=== PATIENT | female | born 1975 | race Caucasian/White ===

== ENCOUNTER 2017-06-24 10:39 | Observation (INO) | payer BC ==
[~2017-06-24 10:39] MED LIST: SUCCINYLCHOLINE CHLORIDE INJ 200 MG/10 ML VIAL ONE
[2017-06-24] MEDS ORDERED: MORPHINE SULFATE 10 MG/ML INJ IV ONE ×2 (10:55→13:08)
[2017-06-24] MEDS ORDERED: NORMAL SALINE 1000 ML 1,000 ML IV ONE (10:55)
[2017-06-24] MEDS ORDERED: ONDANSETRON HCL INJ/PF 4 MG/2 ML SDV IV ONE (10:55)
--- NOTE | 2017-06-24 10:57 | ER Document Report ---
ED Medical Screen (RME) - General Chief Complaint: Abdominal Pain Stated Complaint: ABDOMINAL PAIN Time Seen by Provider: 06/24/17 10:53 Notes: 42-year-old female patient with long history of umbilical hernia. Is scheduled for surgery in 2 weeks. Has been having severe pain for the past 2 days and is unable to reduce the hernia. She can normally reduce it. I have greeted and performed a rapid initial assessment of this patient. A comprehensive ED assessment and evaluation of the patient, analysis of test results and completion of the medical decision making process will be conducted by additional ED providers. TRAVEL OUTSIDE OF THE [place] IN LAST 30 DAYS: No - Related Data Allergies/Adverse Reactions: No Known Allergies Allergy (Verified 06/24/17 10:43) Past Medical History - Past Medical History Cardiac Medical History: Reports: Hx Hypertension Denies: Hx Coronary Artery Disease, Hx Heart Attack Pulmonary Medical History: Denies: Hx Asthma, Hx Bronchitis, Hx COPD, Hx Pneumonia Neurological Medical History: Denies: Hx Cerebrovascular Accident, Hx Seizures Renal/ Medical History: Denies: Hx Peritoneal Dialysis Musculoskeltal Medical History: Denies Hx Arthritis - Immunizations History of Influenza Vaccine for 06/2017 - 11/2017 Season: Yes Influenza Administration Date for 06/2017 - 11/2017 Season: 06/03/16 Physical Exam - Vital signs Vitals: Temp Pulse Resp BP Pulse Ox 98.5 F 104 H 18 147/92 H 95 06/24/17 10:45 06/24/17 10:45 06/24/17 10:45 06/24/17 10:45 06/24/17 10:45 Course - Vital Signs Vital signs: Temp Pulse Resp BP Pulse Ox 98.5 F 104 H 18 147/92 H 95 06/24/17 10:45 06/24/17 10:45 06/24/17 10:45 06/24/17 10:45 06/24/17 10:45
[2017-06-24 11:20] LABS: ABSOLUTE EOSINOPHILS # (AUTO) 0.1 10^3/uL (0.0-0.6); ABSOLUTE LYMPHOCYTES (AUTO) 2.2 10^3/uL (0.5-4.7); ABSOLUTE MONOCYTES (AUTO) 0.3 10^3/uL (0.1-1.4); ABSOLUTE NEUT (AUTO) 3.7 10^3/uL (1.7-8.2); BASOPHILS % (AUTO) 0.5 % (0-2); EOSINOPHILS % (AUTO) 1.5 % (0-6); LYMPHOCYTES % (AUTO) 35.1 % (13-45); MEAN CORPUSCULAR HGB CONC 35.1 g/dL (32.0-36.0); MEAN CORPUSCULAR VOLUME 88 fl (80-97); MONOCYTES % (AUTO) 4.9 % (3-13); RED CELL DISTRIBUTION WIDTH 12.6 % (11.5-14.0); WHITE BLOOD COUNT 6.4 10^3/uL (4.0-10.5)
[2017-06-24 11:35] LABS: ALANINE AMINOTRANSFERASE 28 U/L (9-52); ALBUMIN 4.3 g/dL (3.5-5.0); ALKALINE PHOSPHATASE 50 U/L (38-126); ANION GAP 13 (5-19); ASPARTATE AMINO TRANSFERASE 16 U/L (14-36); BILIRUBIN,DIRECT 0.3 mg/dL (0.0-0.4); BILIRUBIN,TOTAL 0.6 mg/dL (0.2-1.3); BLOOD UREA NITROGEN 10 mg/dL (7-20); CALCIUM 9.2 mg/dL (8.4-10.2); CARBON DIOXIDE 25 mmol/L (22-30); CHLORIDE 102 mmol/L (98-107); CREATININE RESULT 0.68 mg/dL (0.52-1.25); GLUCOSE 114 mg/dL (75-110); POTASSIUM 3.8 mmol/L (3.6-5.0); SODIUM 139.6 mmol/L (137-145); TOTAL PROTEIN 6.8 g/dL (6.3-8.2)
--- NOTE | 2017-06-24 12:25 | ER Document Report ---
ED GI/ - General Chief Complaint: Abdominal Pain Stated Complaint: ABDOMINAL PAIN Time Seen by Provider: 06/24/17 10:53 Mode of Arrival: Ambulatory Information source: Patient Notes: 42-year-old female who presents today with some intermittent periumbilical abdominal pain and "hernia" for the last 2-3 months. She had an outpatient ultrasound showing a hernia and is scheduled operative appointment on July 06 with the general surgeon here name Dr. Hare. She states starting 2 days ago she has had some increased pain and states she is no longer able to "push it back in". She states nausea without vomiting. She denies any fevers. She denies any other reviews of systems such as dysuria, flank pain, diarrhea, chest pain, or shortness of breath. TRAVEL OUTSIDE OF THE [place] IN LAST 30 DAYS: No - HPI Patient complains to provider of: Abdominal pain Onset: Other - See above Timing/Duration: Gradual Quality of pain: Achy Severity at maximum: Moderate Severity in ED: Moderate Pain Level: 1 Location: Other - See above Vaginal bleeding (Compared to normal period): None Sexual history: Active Associated symptoms: Other - See above Exacerbated by: Denies Relieved by: Denies Similar symptoms previously: Yes Recently seen / treated by doctor: Yes - Related Data Allergies/Adverse Reactions: No Known Allergies Allergy (Verified 06/24/17 10:43) Past Medical History - General Information source: Patient - Social History Smoking Status: Never Smoker Cigarette use (# per day): No Chew tobacco use (# tins/day): No Smoking Education Provided: No Frequency of alcohol use: Occasional Drug Abuse: None Family History: Reviewed & Not Pertinent - Past Medical History Cardiac Medical History: Reports: Hx Hypercholesterolemia, Hx Hypertension Denies: Hx Coronary Artery Disease, Hx Heart Attack Pulmonary Medical History: Denies: Hx Asthma, Hx Bronchitis, Hx COPD, Hx Pneumonia Neurological Medical History: Denies: Hx Cerebrovascular Accident, Hx Seizures Renal/ Medical History: Denies: Hx Peritoneal Dialysis Musculoskeltal Medical History: Denies Hx Arthritis Review of Systems - Review of Systems Constitutional: denies: Fever Cardiovascular: denies: Chest pain Respiratory: denies: Short of breath Gastrointestinal: Nausea. denies: Abdomen distended, Diarrhea, Vomiting Genitourinary: denies: Dysuria Skin: Other - no hives. denies: Rash Neurological/Psychological: Other - no slurred speech -: Yes All other systems reviewed and negative Physical Exam - Vital signs Vitals: Temp Pulse Resp BP Pulse Ox 98.5 F 104 H 18 147/92 H 95 06/24/17 10:45 06/24/17 10:45 06/24/17 10:45 06/24/17 10:45 06/24/17 10:45 Notes: Reviewed vital signs and nursing note as charted by RN. CONSTITUTIONAL: Alert and oriented and responds appropriately to questions. Well -appearing; well-nourished HEAD: Normocephalic; atraumatic EYES: SPERRL; Conjunctivae clear, sclerae non-icteric CARD: Regular rate and rhythm; no murmurs RESP: Normal chest excursion without splinting or tachypnea; breath sounds clear and equal bilaterally ABD/GI: Normal bowel sounds; non-distended; soft, patient has a small supraumbilical palpable hernia that is tender to palpation. I am not easily able to reduce this hernia with constant pressure. There is no surrounding erythema or induration noticed BACK: The back appears normal and is non-tender to palpation, there is no CVA tenderness EXT: Normal ROM in all joints; non-tender to palpation; no cyanosis, no effusions, no edema SKIN: No acute lesions noted NEURO: Moves all extremities equally; Motor and sensory function intact PSYCH: The patient's mood and manner are appropriate. Grooming and personal hygiene are appropriate. Course - Re-evaluation Re-evalutation: 06/24/17 12:16 Given the history and physical examination I will obtain a consultation with the general surgeon here at this facility. Basic laboratory values have been ordered in triage. 06/24/17 13:41 Surgery unable to manually reduce. He will admit for further surgical evalation. Labs as recorded. - Vital Signs Vital signs: Temp Pulse Resp BP Pulse Ox 98.5 F 104 H 18 147/92 H 95 06/24/17 10:45 06/24/17 10:45 06/24/17 10:45 06/24/17 10:45 06/24/17 10:45 - Laboratory Result Diagrams: 06/24/17 11:02 06/24/17 11:02 Laboratory results interpreted by me: 06/24/17 11:02 Glucose 114 H Discharge - Discharge Clinical Impression: Incarcerated hernia of abdominal cavity Condition: Fair Disposition: ADMITTED OBSERVATION Admitting Provider: Surgicalist Unit Admitted: Surgical Floor
[2017-06-24] MEDS ORDERED: MIDAZOLAM 2 MG/2 ML INJ IV ONE ×2 (12:43→13:09)
--- NOTE | 2017-06-24 13:38 | RADIOLOGY REPORT (SQ) ---
EXAM DESCRIPTION: KUB/ABDOMEN (SINGLE VIEW) COMPLETED DATE/TIME: 06/24/2017 1:04 pm REASON FOR STUDY: 15, periumbilical hernia COMPARISON: None. NUMBER OF VIEWS: One view. TECHNIQUE: Supine radiographic image of the abdomen acquired. LIMITATIONS: Upper abdomen partly cropped from the field of view FINDINGS: BOWEL GAS PATTERN: Normal bowel gas pattern. No dilated loops. Moderate stool throughout the colon. CALCIFICATIONS: No suspicious calcifications. SOFT TISSUES: No gross mass or suggestion of organomegaly. HARDWARE: IUD in the uterus. Artifact from a zipper on the patient's clothing. BONES: Degenerative changes at L4-5 and L5-S1. OTHER: No other significant finding. IMPRESSION: Nonobstructive bowel gas pattern with moderate amount of stool in the colon TECHNICAL DOCUMENTATION: JOB ID: [id number] [employer]- All Rights Reserved
--- NOTE | 2017-06-24 13:52 | PDOC H&P ---
History of Present Illness Admission Date/PCP: a 42-year-old female with a 3 day history of abdominal pain at the umbilicus. She has a history of umbilical hernia which has in the past been easily reducible. She was recently seen here for evaluation of hernia and scheduled in early July for umbilical hernia repair. On Sunday the hernia bulge became tender and painful. She could not reduce it. It has not been reducible since Sunday. Pain today became unbearable therefore she sought here in the emergency department. History of Present Illness: HARRISON KHAN is a 42 year old female Past Medical History Cardiac Medical History: Reports: Hyperlipidema, Hypertension Denies: Coronary Artery Disease, Myocardial Infarction Pulmonary Medical History: Denies: Asthma, Bronchitis, Chronic Obstructive Pulmonary Disease (COPD), Pneumonia Neurological Medical History: Denies: Seizures Musculoskeltal Medical History: Denies: Arthritis Hematology: Denies: Anemia Past Surgical History Past Surgical History: Reports: Other - Augmentation mammoplasty and foot surgery Social History Smoking Status: Never Smoker Family History Family History: Reviewed & Not Pertinent Parental Family History Reviewed: No Children Family History Reviewed: No Sibling(s) Family History Reviewed.: No Medication/Allergy Home Medications: Esomeprazole Mag Trihydrate [Nexium] 40 mg PO BID 06/21/17 Losartan/Hydrochlorothiazide [Hyzaar 100-25 Tablet] 1 each PO DAILY 06/21/17 Allergies/Adverse Reactions: No Known Allergies Allergy (Verified 06/24/17 10:43) Physical Exam Vital Signs: Temp Pulse Resp BP Pulse Ox 98.5 F 104 H 15 115/84 98 06/24/17 10:45 06/24/17 10:45 06/24/17 13:38 06/24/17 13:38 06/24/17 13:38 Intake & Output 06/23/17 06/24/17 06/25/17 06:59 06:59 06:59 Weight 90.4 kg Results Laboratory Results: 06/24/17 11:02 06/24/17 11:02 06/24/17 06/24/17 11:02 11:02 WBC 6.4 RBC 4.20 Hgb 13.0 Hct 37.0 MCV 88 MCH 31.0 MCHC 35.1 RDW 12.6 Plt Count 248 Seg Neutrophils % 58.0 Lymphocytes % 35.1 Monocytes % 4.9 Eosinophils % 1.5 Basophils % 0.5 Absolute Neutrophils 3.7 Absolute Lymphocytes 2.2 Absolute Monocytes 0.3 Absolute Eosinophils 0.1 Absolute Basophils 0.0 Sodium 139.6 Potassium 3.8 Chloride 102 Carbon Dioxide 25 Anion Gap 13 BUN 10 Creatinine 0.68 Est GFR ( Amer) > 60 Est GFR (Non-Af Amer) > 60 Glucose 114 H Calcium 9.2 Total Bilirubin 0.6 AST 16 ALT 28 Alkaline Phosphatase 50 Total Protein 6.8 Albumin 4.3 Impressions: KUB X-Ray 06/24/17 12:25 IMPRESSION: Nonobstructive bowel gas pattern with moderate amount of stool in the colon Status: Image reviewed by me Assessment & Plan - Diagnosis (1) Incarcerated hernia of abdominal cavity Is this a current diagnosis for this admission?: Yes Plan: A long discussion with the patient and her boyfriend. Gave her the option of going home with pain medication and having her hernia repair done in early July. She states that she has been into much pain and wishes to proceed now with hernia repair. Formal consent for open umbilical hernia repair was obtained. Understands this will not be laparoscopic as the procedure in July would have been. She also understands as she ate about 12-1230 today there will be a 68 hour period for general anesthesia can be given safely. I emphasized n.p.o. status to her for general anesthesia. - Time Time Spent: Greater than 70 Minutes Critical Time spent with patient: 35 or more minutes Medications reviewed and adjusted accordingly: Yes Anticipated discharge: Home Within: within 24 hours - Inpatient Certification Based on my medical assessment, after consideration of the patient's comorbidities, presenting symptoms, or acuity I expect that the services needed warrant INPATIENT care.: Yes I certify that my determination is in accordance with my understanding of Medicare's requirements for reasonable and necessary INPATIENT services [42 CFR 412.3e].: No - Plan Summary Plan Summary: n.p.o. Umbilical hernia repair under general anesthesia.
[2017-06-24] MEDS ORDERED: RINGERS SOLUTION,LACTATED 1,000 ML IV PRN (14:21)
[2017-06-24] MEDS ORDERED: CITRIC ACID/SODIUM CITRATE ORAL SOLN 15 ML UDCUP PO ONE (14:21)
[2017-06-24] MEDS ORDERED: METOCLOPRAMIDE HCL INJ/PF 10 MG/2 ML SDV IM ONE (14:21)
[2017-06-24] MEDS ORDERED: FENTANYL CITRATE INJ/PF 100 MCG/2 ML AMPUL ONE (16:33)
[2017-06-24] MEDS ORDERED: ACETAMINOPHEN 100 ML IV ONE (16:34)
[2017-06-24] MEDS ORDERED: MIDAZOLAM 2 MG/2 ML INJ ONE (16:34)
[2017-06-24] MEDS ORDERED: MORPHINE SULFATE 10 MG/ML INJ ONE (16:34)
[2017-06-24] MEDS ORDERED: PROPOFOL INJ 200 MG/20 ML VIAL IV ONE (16:34)
[2017-06-24] MEDS ORDERED: DEXAMETHASONE SOD PHOSPHATE INJ 4 MG/1 ML VIAL ONE (16:35)
[2017-06-24] MEDS ORDERED: IBUPROFEN INJ 800 MG/8 ML VIAL IV ONE (16:35)
[2017-06-24] MEDS ORDERED: ONDANSETRON HCL INJ/PF 4 MG/2 ML SDV ONE (16:35)
[2017-06-24] MEDS ORDERED: CEFAZOLIN INJ 1 GM VIAL ONE (16:42)
[2017-06-24] MEDS: BUPIVACAINE HCL 0.25% /EPINEPHRINE INJ/PF 30 ML SDV ONE ×2 (17:09→17:45)
[2017-06-24] MEDS ORDERED: FENTANYL CITRATE INJ/PF 100 MCG/2 ML AMPUL IV PRN ×3 (17:24)
[2017-06-24] MEDS ORDERED: MORPHINE SULFATE 10 MG/ML INJ IV PRN (17:24)
[2017-06-24] MEDS ORDERED: DIPHENHYDRAMINE HCL 50 MG/ML VIAL IV PRN (17:24)
[2017-06-24] MEDS ORDERED: MEPERIDINE HCL/PF INJ 25 MG/1 ML DISP.SYRIN IV PRN (17:24)
[2017-06-24] MEDS ORDERED: PROMETHAZINE HCL INJ 25 MG/1 ML VIAL IV PRN (17:24)
--- NOTE | 2017-06-24 18:20 | Operative Report ---
Operative Report DATE OF SURGERY: 06/24/17 PREOPERATIVE DIAGNOSIS: Incarcerated umbilical hernia POSTOPERATIVE DIAGNOSIS: Incarcerated umbilical hernia OPERATION: Open umbilical hernia repair SURGEON: ZAIDA ZUNIGA ANESTHESIA: GA TISSUE REMOVED OR ALTERED: Hernia sac COMPLICATIONS: None ESTIMATED BLOOD LOSS: None INTRAOPERATIVE FINDINGS: Incarcerated umbilical hernia with preperitoneal fat in the hernia sac. No bowel associated with the hernia. PROCEDURE: The patient was identified and brought to the operating room. General anesthesia was given. Timeout was taken to identify the patient and the procedure. Members of the operating room team agreed upon the timeout. The abdomen and chest were prepped and draped in a sterile manner. Quarter percent Marcaine with epinephrine was instilled around the umbilicus; 30 cc was used. An incision was made transversely in the infra umbilical area. Dissection was carried down to the fascia with electrocautery. Hernia sac was identified and dissected free at the level of the fascia. The sac was then dissected sharply from the posterior aspect of the umbilicus. The sac was opened and preperitoneal fat was identified in the hernia sac. Preperitoneal fat was reduced back into the abdomen. Hernia sac was ligated at the level of the fascia and transected with electrocautery distal to the ligature. 4 interrupted sutures of 0 Prolene were then placed transversely across the defect which measured approximately 8 mm. These were then tied down and the knots inverted into the preperitoneal space. A 3-0 Vicryl was used to tack the umbilicus to the fascia. 2-0 Vicryl was then used to close the subcutaneous tissues over the primary repair. The wound was irrigated copiously with saline at each layer of closure. 3-0 Vicryl was used to reapproximate subcutaneous layers and 4-0 Monocryl was used to close the skin in a subcuticular manner. Dermabond was applied to the incision. A pressure dressing was then applied to the umbilicus. The patient was awakened and extubated and the operating room. She was moved to the recovery room in stable condition.
[2017-06-24] MEDS ORDERED: HYDROCODONE/ACETAMINOPHEN 5-325 MG TABLET PO PRN (18:31)
[2017-06-25] MEDS: HYDROCODONE/ACETAMINOPHEN 5-325 MG TABLET PO PRN ×3 (07:53→18:03)
[2017-06-25] MEDS ORDERED: INFLUENZA ADLT QUAD (36MOS+) 2017-18 VAC 0.5 ML SYR IM PRN (08:44)
[2017-06-25 17:05] VITALS: BP 123/80
--- NOTE | 2017-06-26 01:07 | DISCHARGE SUMMARY E ---
Discharge Summary NAME: HARRISON KHAN : 1975 AGE: 42Y ADMITTED: 06/24/2017 DISCHARGED: 06/25/2017 FINAL DIAGNOSIS: Status post repair of incarcerated umbilical hernia. HOSPITAL COURSE: This 42-year-old female presented to the emergency room with an incarcerated umbilical hernia. The patient had a long history of umbilical hernia, and was scheduled to have surgery in 2 weeks. However, she was having severe pain for the past 2 days and was unable to reduce the hernia which she can usually do on her own. The patient was seen by Dr. Manning on 06/24/2017, and the patient was taken to the operating room on 06/24/2017 where she underwent repair of her incarcerated umbilical hernia. Patient's postop course was uneventful. She was started on a regular diet on the first postop day, and on 06/25/17, upon my visit she was afebrile, vital signs were stable, abdomen was sore, bowel sounds were present, she was tolerating her diet, and was having good bowel function, and patient is now discharge home on Percocet, and will be seen in the [facility] in 7-10 days. DICTATING PHYSICIAN: JORDAN TERRAZAS M.D. [id number] PHY#: [id number] ID: [id number] JOB#: [id number] ACCT: [id number] cc:Kd WETZEL M.D. NO MD LOCAL, M.D >
== END 2017-06-25 18:35 | disposition home or self-care (01) ==
LOC: ER 10:39 → UNDOADMOB 14:12 → EH 14:12 → 2N 18:47
PROVIDERS: ATTEND Transplant Surgery
PROC: 0WQF0ZZ Repair Abdominal Wall, Open Approach (ICD-10-PCS; 2017-06-24)
PROC: 3E0234Z Introduction of Serum, Toxoid and Vaccine into Muscle, Percutaneous Approach (ICD-10-PCS; principal; 2017-06-25)
DX: K42.0 Umbilical hernia with obstruction, without gangrene (principal); I10 Essential (primary) hypertension; Z23 Encounter for immunization
CPT/HCPCS: 96376; 99285; 96372; 96361; 96375; 96365; 36415; 85025; 80053; 88302 ×2; 74000; 90686; 49587; J2250; J3490 ×2; J0690; J1100; J3010; J2765; J2270; J0330; J2405; J7030; J7120; J2704; J0131; J1741; 830

== ENCOUNTER 2018-04-19 07:43 | Day surgery (SDC) | payer BC, OTHER ==
[2018-04-19] MEDS ORDERED: PROPOFOL INJ 200 MG/20 ML VIAL IV ONE (08:52)
[2018-04-19] MEDS ORDERED: MIDAZOLAM 2 MG/2 ML INJ ONE (08:52)
[2018-04-19] MEDS ORDERED: PROMETHAZINE HCL INJ 25 MG/1 ML VIAL IV PRN ×2 (10:22)
[2018-04-19] MEDS ORDERED: OXYCODONE-ACETAMINOPHEN 5-325 MG TABLET PO PRN ×2 (10:22)
[2018-04-19] MEDS ORDERED: DIPHENHYDRAMINE HCL 50 MG/ML VIAL IV PRN (10:22)
[2018-04-19] MEDS ORDERED: MEPERIDINE HCL/PF INJ 25 MG/1 ML DISP.SYRIN IV PRN (10:22)
[2018-04-19] MEDS ORDERED: FENTANYL CITRATE INJ/PF 100 MCG/2 ML AMPUL IV PRN ×3 (10:22)
--- NOTE | 2018-04-19 11:24 | Operative Report ---
Operative Report DATE OF SURGERY: 04/19/18 Operative Report: The risks, benefits and alternatives of the procedure including risks of bleeding, perforation requiring surgery are explained to the patient in detail and informed consent is obtained. Patient was taken to the operating room and placed in the left, lateral decubital position. Timeout was called. Propofol medication is administered. A rectal examination is done which did not reveal any masses, tears or fissures. An Olympus videoscope was inserted into the patient's rectum. The scope was then carefully advanced all the way to the cecum. The cecum was identified by the usual anatomical landmarks including the ileocecal valve as well as the appendiceal office. Photodocumentation is obtained. Prep is good. Scope was then sequentially pulled back via the various segments of the colon including the ascending colon, hepatic flexure, transverse colon, splenic flexure, descending colon and finally into the rectosigmoid portions of the colon. Retroflexion maneuvers performed. The risks benefits and alternatives of the procedure explained to the patient in detail and informed consent is obtained.A GIF Olympus video scope was inserted into the patient's mouth and hypopharynx, the esophagus is identified intubated and insufflated, the scope was then advanced through the esophagus stomach and duodenum, retroflexion maneuver is done, the esophagus stomach and first and second portions of the duodenum examined PREOPERATIVE DIAGNOSIS: Dysphagia. Personal history of polyp. Change of bowel habits POSTOPERATIVE DIAGNOSIS: Right side colon inflammation status post biopsy rule out lymphocytic, microscopic, collagenous colitis. Diverticulosis. Internal hemorrhoids. Gastritis status post biopsy rule out Helicobacter pylori OPERATION: Colonoscopy with biopsy. EGD with biopsy SURGEON: RITU FLORENCE ANESTHESIA: LMAC TISSUE REMOVED OR ALTERED: As noted above. COMPLICATIONS: None. ESTIMATED BLOOD LOSS: None. INTRAOPERATIVE FINDINGS: As noted above. PROCEDURE: Patient tolerated the procedure well. No immediate postprocedure complications are noted. Patient discharged in good condition. Discharge date 04/19/2018. Discharge diet: Regular. Discharge activity: Regular. 2-3 week follow-up to discuss findings. Patient is instructed call the office or proceed to the emergency room should there be any further problems or questions. We will await the pathology.
[2018-04-19] MEDS ORDERED: SIMETHICONE 80 MG TAB.CHEW PO PRN (12:00)
[2018-04-19] MEDS ORDERED: DEXTROSE 5%-1/2 NORMAL SALINE 1,000 ML IV PRN (12:00)
[2018-04-19] MEDS ORDERED: ACETAMINOPHEN 325 MG TABLET PO PRN (12:00)
[2018-04-19] MEDS ORDERED: PROMETHAZINE HCL INJ 25 MG/1 ML VIAL INJ PRN (12:00)
--- NOTE | 2018-04-19 12:14 | EKG REPORT ---
SEVERITY:- ABNORMAL ECG - SINUS RHYTHM LOW VOLTAGE THROUGHOUT CONSIDER ANTERIOR INFARCT NONSPECIFIC ST-T CHANGES- INFERIOR LEADS : Confirmed by: Angel Mckeon MD 19-Apr-2018 12:14:13
[2018-04-19 13:03] VITALS: BP 114/75
== END 2018-04-19 11:50 | disposition home or self-care (01) ==
LOC: OROUT 07:43
PROVIDERS: ATTEND Internal Medicine Gastroenterology
DX: K29.50 Unspecified chronic gastritis without bleeding (principal); K52.9 Noninfective gastroenteritis and colitis, unspecified; K57.30 Diverticulosis of large intestine without perforation or abscess without bleeding; K64.8 Other hemorrhoids; Z80.0 Family history of malignant neoplasm of digestive organs; Z86.010 Personal history of colon polyps; I10 Essential (primary) hypertension; K21.9 Gastro-esophageal reflux disease without esophagitis; E78.5 Hyperlipidemia, unspecified; D64.9 Anemia, unspecified
CPT/HCPCS: 43239; 45380; 36415; 84132; 81025; 88305 ×2; 93005; 93010; J2250; J2704; 813

== ENCOUNTER → 2018-05-03 | Outpatient (CLI) | payer BC, OTHER ==
--- NOTE | 2018-05-03 09:43 | RADIOLOGY REPORT (SQ) ---
EXAM DESCRIPTION: BARIUM SWALLOW ESOPHAGUS COMPLETED DATE/TIME: 05/03/2018 8:51 am REASON FOR STUDY: DYSPHAGIA R13.10 DYSPHAGIA, UNSPECIFIED COMPARISON: None. TECHNIQUE: Under fluoroscopic guidance, patient ingested effervescent granules followed by thick and thin barium. Fluoroscopic spot images and routine radiographic images acquired and stored on PACS. 12 MM BARIUM TABLET GIVEN: Yes No significant delay in passage. LIMITATIONS: None. FLUOROSCOPY TIME: FLUORO TIME: 1 minutes 9 seconds 14 series of digital radiographic images saved to PACS. FINDINGS: NEUROMUSCULAR COORDINATION OF SWALLOW: Normal. No aspiration. ESOPHAGEAL MOTILITY: Normal peristalsis. No esophageal spasm. ESOPHAGEAL MUCOSA: Normal mucosa without masses or ulceration. GASTRO-ESOPHAGEAL JUNCTION: There is a large retrocardiac hernia, containing the stomach fundus and G E junction. Trace gastroesophageal reflux. No distal esophageal stricture. Stomach fundal pouch ab ove the left hemidiaphragm empties slowly into the remainder of the stomach. OTHER: Incompletely imaged. Prompt movement of barium from the body and antrum of the stomach into n ormal appearing duodenum. IMPRESSION: Large retrocardiac hiatal hernia containing the stomach fundus and GE junction. Fundal pouch above the hemidiaphragms empties slowly. Trace gastroesophageal reflux COMMENT: Quality ID [id number]: Final reports for procedures using fluoroscopy that document radiation exp osure indices, or exposure time and number of fluorographic images (if radiation exposure indices are not available) TECHNICAL DOCUMENTATION: JOB ID: [id number] [employer]- All Rights Reserved Reading location - IP/workstation name: [email or web address]
== END ==
LOC: RAD 08:14
PROVIDERS: ATTEND Internal Medicine Gastroenterology
DX: R13.10 Dysphagia, unspecified (principal)
CPT/HCPCS: 74220

== ENCOUNTER → 2018-08-14 | Outpatient (CLI) | payer OTHER ==
--- NOTE | 2018-08-14 15:01 | RADIOLOGY REPORT (SQ) ---
EXAM DESCRIPTION: BARIUM ENEMA W/AIR COMPLETED DATE/TIME: 08/14/2018 11:08 am REASON FOR STUDY: OSTEOMY REVERSAL/RECTAL STUMP COMPARISON: None. TECHNIQUE: Retrograde fill of the rectal stump using water-soluble contrast. RADIATION DOSE: Fluoro time 1.6 minutes. 7 images acquired. LIMITATIONS: None. FINDINGS: The rectal stump was filled with water-soluble contrast to the level of the proximal sigmo id colon. No abnormalities are identified. IMPRESSION: Contrast enema of rectal stump with no abnormalities identified. COMMENT: None TECHNICAL DOCUMENTATION: JOB ID: [id number] [employer]- All Rights Reserved Reading location - IP/workstation name: [email or web address]
== END ==
LOC: RAD 09:49
DX: Z01.818 Encounter for other preprocedural examination (principal)
CPT/HCPCS: 74280